=== PATIENT | female | born 1945 | race Caucasian/White ===

== ENCOUNTER 2023-09-26 12:47 | Emergency (ER) | payer MEDICARE, OTHER, SELFPAY ==
[2023-09-26 12:48] VITALS: BP 114/71
--- NOTE | 2023-09-26 13:42 | ED.GENMED ---
History of Present Illness
General
Chief Complaint: Musculo-Skeletal Complaint
Time Seen by Provider: 09/26/23 12:56
Travel History
Have you had any contact with someone who has COVID-19?: No
Do you have any symptoms of coronavirus? Fever > 100 degrees, chills, cough, shortness of breath, sore throat, loss of taste or smell, muscle aches, or headache?: No
History of Present Illness
History of Present Illness:
78-year-old female presents to the emergency department for evaluation of right knee pain that began yesterday and worsened upon awakening today. Feels as though she cannot bear any weight. Denies any falls or trauma. Took ibuprofen with modest
improvement
Past History
Past History
ED Past Medical History: CAD, Cancer (Left breast CA), Hypercholesterolemia, NIDDM (Boarder line II controlled by Diet) and Other (Lyme disease, )
ED Past Surgical History: Gynecological (Left breast lumpectomy), Tonsilectomy and Other (Cataract surgery , Left ear surgery)
Social History
Tobacco: Former smoker
Alcohol: None
Drug: None
Personal:
Living: alone
Employment: Employed
Family History
Family History: Hypertension
Review of Systems
Review of Systems
Allergies reviewed?: Yes
All Other Systems: ROS reviewed and negative except as documented in HPI and ROS
Phy Exam
Physical Exam
Physical Exam:
GEN: Well appearing, NAD, WDWN
HEENT: Oral mucosa moist, no scleral icterus
Cardiac: Regular rate
Lung: No respiratory distress, no tachypnea
MSK: No gross deformity or injuries. Right knee range of motion normal without crepitus. There is tenderness along the medial joint line. No joint laxity. No lower extremity edema, dorsalis pedis pulses 2+
Skin: Good color, no pallor or jaundice, no rashes
Neuro: AO x3, moves all extremities freely
Psych: Calm, cooperative
Course
Orders/Labs/Results
Orders:
Orders
09/26/23 13:13
CR Knee- Right 4 Or More View* Urgent
Comment:
Reason For Exam: non traumatic knee pain
Vital Signs
Initial and Last Documented VS:
Initial Vital Signs
Temp Pulse Resp BP Pulse Ox
98.7 F 61 16 114/71 97
09/26/23 12:48 09/26/23 12:48 09/26/23 12:48 09/26/23 12:48 09/26/23 12:48
Last Documented Vital Signs
Temp Pulse Resp BP Pulse Ox
98.7 F 61 16 114/71 97
09/26/23 12:48 09/26/23 12:48 09/26/23 12:48 09/26/23 12:48 09/26/23 12:48
MDM/Problems Addressed
MDM/Problems Addressed:
X-ray of the right knee independently interpreted by me as negative for acute osseous abnormality. No injuries to suggest an internal derangement or meniscal tear. X-rays are unremarkable. Will discharge on NSAIDs, discussed supportive measures
and INES, orthopedic follow-up advised
*Critical Care Note
Total Time (30-74mins, 75-104mins- exclusive of procedures): Not Applicable
ED Attending Note
-
Portions of this chart may have been created with voice recognition software.� Occasional wrong word or��sound alike� substitutions may have occurred due to the inherent limitations of voice recognition software.
Discharge Plan
Departure
Patient Disposition: Home (Routine Discharge)
Date of Disposition: 09/26/23
Time of Disposition: 14:01
Patient with high blood pressure during this ER visit?: No
Discharge Problem:
Right knee sprain
Instructions: Knee Pain (DC)
Prescriptions:
New
diclofenac sodium 75 mg tablet,delayed release (DR/EC)
75 mg PO BID PRN (Reason: Pain) Qty: 20 0RF
No Action
ascorbic acid (vitamin C) [Vitamin C] 1,000 MG tablet
1 tab PO DAILY
vitamin B complex [Varisan] 1 TAB tablet
1 tab PO DAILY
cholecalciferol (vitamin D3) [Vitamin D3] 1,000 UNIT capsule
1 cap PO DAILY
docosahexaenoic acid-epa 1 CAP capsule
3 cap PO DAILY
multivitamin 1 EACH tablet
1 ea PO DAILY
famotidine 40 MG tablet
40 mg PO DAILY
aspirin [Lo-Dose Aspirin] 81 MG tablet,delayed release (DR/EC)
81 mg PO DAILY
omeprazole 20 MG capsule,delayed release(DR/EC)
20 mg PO DAILY
denosumab [Prolia] 60 MG/ML syringe
60 mg SC [id number]
Referrals:
Lara Hendrix DO [Active] - Follow up in 1 week
Roly Em MD [Family Provider] -
Interventions
Interventions:
*General Assessment Last Done: 09/26/23 12:48
*ED COVID-19 Vaccine History Last Done: 09/26/23 12:48
*Nursing Disposition Last Done: 09/26/23 14:10
ED-Musculoskeletal Assessment Last Done: 09/26/23 13:08
Discharge Date and Time
Discharge Date/Time: 09/26/23 14:10
== END 2023-09-26 14:10 | disposition home or self-care (01) ==
LOC: EMR 12:47
PROVIDERS: EMERGENCY PHYSICIAN Emergency Medicine; FAMILY PHYSICIAN Family Medicine
DX: S83.91XA Sprain of unspecified site of right knee, initial encounter (principal); X58.XXXA Exposure to other specified factors, initial encounter; I25.10 Atherosclerotic heart disease of native coronary artery without angina pectoris; E78.00 Pure hypercholesterolemia, unspecified; E11.9 Type 2 diabetes mellitus without complications; A69.20 Lyme disease, unspecified; Z82.49 Family history of ischemic heart disease and other diseases of the circulatory system; Z85.3 Personal history of malignant neoplasm of breast; Z87.891 Personal history of nicotine dependence
CPT/HCPCS: 99283; 73564

== ENCOUNTER → 2024-02-10 06:57 | Outpatient (REF) | payer MEDICARE, OTHER, SELFPAY | LOC: HWRAD 06:57 | PROVIDERS: ATTENDING PHYSICIAN Internal Medicine Rheumatology; FAMILY PHYSICIAN Family Medicine | DX: M81.0 Age-related osteoporosis without current pathological fracture (principal) | CPT/HCPCS: 77080 ==

== ENCOUNTER → 2024-02-16 13:29 | Outpatient (REF) | payer MEDICARE, OTHER, SELFPAY | LOC: PAVMRI 13:29 | PROVIDERS: ATTENDING PHYSICIAN Internal Medicine Rheumatology; FAMILY PHYSICIAN Family Medicine | DX: M17.11 Unilateral primary osteoarthritis, right knee (principal); M25.561 Pain in right knee | CPT/HCPCS: 73721 ==

== ENCOUNTER 2024-06-25 09:09 | Emergency (ER) | payer MEDICARE, OTHER, SELFPAY ==
[2024-06-25 09:42] VITALS: BP 147/77
--- NOTE | 2024-06-25 10:30 | ED.GENMED ---
History of Present Illness
General
Chief Complaint: Fall
Source: patient
Exam Limitations: none
Time Seen by Provider: 06/25/24 10:18
Nursing documentation reviewed up to this point in time: agreed with
History of Present Illness
History of Present Illness:
79-year-old female with a past medical history of coronary artery disease on aspirin, breast cancer, presents to the emergency department today with concerns of back pain and hip pain following a fall. Patient reports that 6 days ago, she was
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 Patient states that she got up on her own okay and completed the concert without any problems. Patient states that as the days progressed, she
started develop pain in her mid back as well as left hip pain, left knee pain, and right knee pain that got so severe last night that she can barely walk without a limp severe pain. Patient states she has been taking cyclobenzaprine with minimal
relief. Patient states that she did not lose consciousness or hit her head at the time, patient denies any neck pain. Patient states that she has known osteoarthritis of her right knee and is supposed to get a knee replacement in right knee. She
denies shortness of breath, chest pain, dizziness, lightheadedness.
Past History
Past History
ED Past Medical History: CAD, Cancer (Left breast CA), Hypercholesterolemia, NIDDM (Boarder line II controlled by Diet) and Other (Lyme disease, )
ED Past Surgical History: Gynecological (Left breast lumpectomy), Tonsilectomy and Other (Cataract surgery , Left ear surgery)
Social History
Tobacco: Former smoker
Alcohol: None
Drug: None
Personal:
Living: alone
Employment: Employed
Family History
Family History: Hypertension
Review of Systems
Review of Systems
All Other Systems: ROS reviewed and negative except as documented in HPI and ROS
Phy Exam
Physical Exam
Physical Exam:
General: Patient is well appearing and in no acute distress; non-toxic
Skin: Warm and dry, no rashes or lesions
Head: Normocephalic, atraumatic
Eyes: Sclera non-icteric. EOMs intact. PERRLA.
Cardiac: Regular rate
Peripheral Vascular: 2+ dp and pt pulses bilaterally
Pulm: Normal respiratory effort
Musculoskeletal: R HIP: No pain with passive ROM of right hip. R KNEE: Right sided suprapatellar swelling noted, pain with passive knee extension. L HIP: Pain with left hip flexion, no pain with internal/external rotation. Tenderness to palpation
over left mid femur.
No pain with varus/valgus ankle stress bilaterally. No palpable bony deformities.
Neuro: CN II-XII intact, no focal neurologic deficits.
Psychiatric: Appropriate mood and affect.
Course
Orders/Labs/Results
Orders:
Orders
06/25/24 10:53
CR Hip - LT w/wo Pel 2-3 Vw* Urgent
Comment:
Reason For Exam: left hip pain following fall
Include a pelvis x-ray?: Yes
CR Knee- Right 4 Or More View* Urgent
Comment:
Reason For Exam: right knee pain and swelling following fall
CR Thoracic Spine 3 Views Urgent
Comment:
Reason For Exam: midline tenderness following fall
06/25/24 10:54
Ibuprofen [Motrin] 600 mg PO NOW STA
CR Knee - Left 4 Or More View* Urgent
Comment:
Reason For Exam: knee pain
Vital Signs
Initial and Last Documented VS:
Initial Vital Signs
Temp Pulse Resp BP Pulse Ox
99.1 F 66 18 147/77 96
06/25/24 09:42 06/25/24 09:42 06/25/24 09:42 06/25/24 09:42 06/25/24 09:42
Last Documented Vital Signs
Temp Pulse Resp BP Pulse Ox
99.1 F 66 18 147/77 96
06/25/24 09:42 06/25/24 09:42 06/25/24 09:42 06/25/24 09:42 06/25/24 09:42
MDM/Problems Addressed
Differential Diagnosis Includes:
Differentials include femoral neck fracture, musculoskeletal strain/strain, osteoarthritis, vertebral fracture
MDM/Problems Addressed:
79-year-old female with past medical history of coronary artery disease on aspirin, lung disease, breast cancer, presents emergency department today with left hip pain and back pain following a fall. This fall occurred 6 days ago. In contrast to
nursing triage note, patient states that she did NOT fall last night. Patient was able to ambulate without difficulty or pain the past few days until the past few days when she started to have more severe pain and difficulty with ambulation. On
exam, she is well-appearing, she has no areas of ecchymosis, she does have pain with hip flexion, does have tenderness palpation of the left femur but no obvious bony deformities, also has right knee swelling and pain with passive extension. Will
treat patient pain with ibuprofen and send for x-rays.
On reassessment, patient's pain is improved. Her x-rays are negative for any acute fracture or dislocation. I discussed these findings with patient. I did recommend follow-up with patient's orthopedist. Patient states that the most uncomfortable
symptom for her currently is her left knee pain. I did discuss the use of brace to help support the knee, did offer physical therapy, patient declining at this time. Patient states that she feels safe to go home, she states that she lives alone
one story building and does not have to climb stairs. Patient stable for discharge
Chronic conditions affecting care:
n/a
Acute Exacerbation and/or Progression of Chronic Illness:
n/a
*Radiology
Radiology exam reviewed: radiology read reviewed
*Pulse Oximetry
Patient hypoxic: no
*Critical Care Note
Total Time (30-74mins, 75-104mins- exclusive of procedures): Not Applicable
Data Reviewed
Review of Other/Old Records Reveals: Records (Reviewed ER physician documentation from 09/24/2023 patient seen for right knee strain, had x-ray done which was negative, advised to use ice and orthopedic follow-up) and Discharge Summary (No hospital
discharge summary to review)
Source: patient and records
Patient Management
Escalation/DeEscalation of care consider admission/obs:
case reviewed with my attending patient stable for discharge
ED Attending Note
-
Portions of this chart may have been created with voice recognition software.� Occasional wrong word or��sound alike� substitutions may have occurred due to the inherent limitations of voice recognition software.
Discharge Plan
Departure
Patient Disposition: Home (Routine Discharge)
Date of Disposition: 06/25/24
Time of Disposition: 13:46
Patient with high blood pressure during this ER visit?: Yes
Condition: Good
Discharge Problem:
Fall, Acute knee pain
Instructions: Preventing falls in adults, Knee pain, Back Pain, BLOOD PRESSURE
Prescriptions:
No Action
ascorbic acid (vitamin C) [Vitamin C] 1,000 MG tablet
1 tab PO DAILY
vitamin B complex [Varisan] 1 TAB tablet
1 tab PO DAILY
cholecalciferol (vitamin D3) [Vitamin D3] 1,000 UNIT capsule
1 cap PO DAILY
docosahexaenoic acid-epa 1 CAP capsule
3 cap PO DAILY
multivitamin 1 EACH tablet
1 ea PO DAILY
famotidine 40 MG tablet
40 mg PO DAILY
aspirin [Lo-Dose Aspirin] 81 MG tablet,delayed release (DR/EC)
81 mg PO DAILY
omeprazole 20 MG capsule,delayed release(DR/EC)
20 mg PO DAILY
denosumab [Prolia] 60 MG/ML syringe
60 mg SC [id number]
diclofenac sodium 75 mg tablet,delayed release (DR/EC)
75 mg PO BID PRN (Reason: Pain) Qty: 20 0RF
Referrals:
Lara Hendrix I., DO [Active] - Call in 1-3 days for appt
Roly Em MD [Family Provider] -
Activity Restrictions/Additional Instructions:
Please follow-up with your primary care provider. Please follow-up with your orthopedist.
Return to the emergency department should you develop the inability to ambulate, and acute worsening or pain, loss of sensation in your extremities, pallor, chest pain, shortness of breath, or any other signs or symptoms concerning to you.
Interventions
Interventions:
*Risk Screen - Suicide Last Done: 06/25/24 09:42
*General Assessment Last Done: 06/25/24 09:42
*Neglect/Abuse Screening Last Done: 06/25/24 09:42
*Nursing Disposition Last Done: 06/25/24 13:52
Discharge Date and Time
Discharge Date/Time: 06/25/24 13:52
Print Language: [place] CITIZ[place]
[2024-06-25] MEDS: MOTRIN 600 MG PO (11:12)
[2024-06-25 12:00] VITALS: BP 132/64
== END 2024-06-25 13:52 | disposition home or self-care (01) ==
LOC: EMR 09:09
PROVIDERS: EMERGENCY PHYSICIAN Emergency Medicine; FAMILY PHYSICIAN Family Medicine
DX: M25.561 Pain in right knee (principal); M54.9 Dorsalgia, unspecified; M25.552 Pain in left hip; W19.XXXA Unspecified fall, initial encounter; I25.10 Atherosclerotic heart disease of native coronary artery without angina pectoris; E78.00 Pure hypercholesterolemia, unspecified; E11.9 Type 2 diabetes mellitus without complications; Z85.3 Personal history of malignant neoplasm of breast; Z87.891 Personal history of nicotine dependence
CPT/HCPCS: 99284; 72072; 73502; 73564

== ENCOUNTER 2024-10-11 14:17 | Emergency (ER) | payer MEDICARE, OTHER, SELFPAY ==
[2024-10-11 14:18] VITALS: BP 151/62
--- NOTE | 2024-10-11 15:45 | ED.GENMED ---
History of Present Illness
General
Chief Complaint: DVT/Possible Blood Clot
Source: patient
Time Seen by Provider: 10/11/24 15:18
History of Present Illness
History of Present Illness:
79-year-old female with past medical history of previous breast cancer, status post right total knee replacement on September 19 presenting to the emergency department for evaluation at the request of her orthopedic surgeon for DVT rule out after
patient started noticing increased pain and swelling last night. Patient has had follow-up with her orthopedic surgeon who is happy with the healing. Patient has been doing physical therapy as prescribed, had an appointment today but was in too
much discomfort and was recommended to come to the ER. Patient is denying any chest pain, shortness of breath, cough, pleurisy or any other concerns.
Past History
Past History
ED Past Medical History: CAD, Cancer (Left breast CA), Hypercholesterolemia, NIDDM (Boarder line II controlled by Diet) and Other (Lyme disease, )
ED Past Surgical History: Gynecological (Left breast lumpectomy), Tonsilectomy and Other (Cataract surgery , Left ear surgery)
Social History
Tobacco: Former smoker
Alcohol: None
Drug: None
Personal:
Living: alone
Employment: Employed
Family History
Family History: Hypertension
Review of Systems
Review of Systems
All Other Systems: ROS reviewed and negative except as documented in HPI and ROS
Phy Exam
Physical Exam
Physical Exam:
GENERAL: Alert , in no apparent distress
EYE: conjunctiva clear
Head: Normocephalic atraumatic
NECK: Supple,
ENT: mmm.
LUNGS: no acute respiratory distress
NEUROLOGICAL: Alert and oriented
SKIN: Warm and dry, skin intact.
MUSCULOSKELETAL: Right lower extremity: There is mild soft tissue swelling around the anterior and lateral aspect of the knee which extends distally towards the ankle. Patient does have tenderness diffusely and circumferentially from the knee
distal. Slightly erythematous along the medial aspect of the knee but patient reports this has been constant since the surgery and surgeon was not concerned for infection. Easily palpable pedal and tibial pulse. Cap refill less than 2 seconds.
Sensation grossly intact to light touch.
PSYCH: Normal and appropriate interaction.
Scores
Heart Failure Risk
Heart Failure Risk Score: Not Applicable
Heart Score for Chest Pain Patients
STEMI patient?: Not applicable
Withdrawal Assessment of Alcohol
Withdrawal Assessment Completed?: Not applicable
Course
Orders/Labs/Results
Orders:
Orders
10/11/24 14:23
US Periph Venous LOWER Ext RT Urgent
Comment:
Reason For Exam: swelling, recent surgery
10/11/24 17:19
CT Chest PE Study Urgent
Comment:
Reason For Exam: DVT, SOB, recent surgery
10/11/24 17:30
Basic Metabolic Panel Urgent
Complete Blood Count/With Diff Urgent
PTT Urgent
Prothrombin Time Urgent
10/11/24 19:54
Apixaban [Eliquis] 10 mg PO NOW STA
Abnormal Lab Results
10/11/24
17:30
RBC 3.94 L 10^6/uL
(4.20-5.40)
MCH 32.5 H pg
(27.0-31.0)
Creatinine 0.5 L mg/dL
(0.6-1.0)
10/11/24 17:30
10/11/24 17:30
Vital Signs
Initial and Last Documented VS:
Initial Vital Signs
Temp Pulse Resp BP Pulse Ox
98.2 F 70 16 151/62 99
10/11/24 14:18 10/11/24 14:18 10/11/24 14:18 10/11/24 14:18 10/11/24 14:18
Last Documented Vital Signs
Temp Pulse Resp BP Pulse Ox
98.2 F 78 16 151/62 98
10/11/24 14:18 10/11/24 17:29 10/11/24 17:29 10/11/24 14:18 10/11/24 17:29
MDM/Problems Addressed
Differential Diagnosis Includes:
DVT/PE, peripheral vascular disease, peripheral arterial disease, infectious etiology
MDM/Problems Addressed:
79-year-old female presenting to the ER at the request of her orthopedic surgeon for evaluation of possible DVT to the right lower extremity in the setting of recent knee replacement. Patient does have some soft tissue swelling that is noticeable
on her exam. Intact and equal pulses bilaterally making acute arterial occlusion much less likely. Will check ultrasound to rule out DVT. Disposition pending.
Chronic conditions affecting care: Other (Recent orthopedic surgery)
*Radiology
Radiology exam reviewed: radiology read reviewed
*Pulse Oximetry
Patient hypoxic: no
*Critical Care Note
Total Time (30-74mins, 75-104mins- exclusive of procedures): Not Applicable
Comment
Comment:
Patient has an acute DVT of the right peroneal vein. While discussing the results with the patient she now is noting that she has been experiencing some mild shortness of breath over the last couple of days. Given her known known DVT combined with
her reported shortness of breath labs and CT imaging were ordered to rule out pulmonary embolism.
Patient Management
Escalation/DeEscalation of care consider admission/obs:
Patient CT scan of the chest is negative for acute pulmonary embolism. She remains hemodynamically stable and okay for discharge home. Patient was given her first dose of Eliquis here and prescription sent to pharmacy. She was with a coupon for
the first 30 days of her anticoagulation. Advised patient to contact her orthopedic surgeon in the morning as well as her primary care provider as she will likely need extended anticoagulation past the 1 month and close monitoring of the DVT. She
was given return precautions. Patient was advised on potential side effects of Eliquis as well as medications to avoid. Patient will stop use of her aspirin for the time being. Stable for discharge home
ED Attending Note
-
Portions of this chart may have been created with voice recognition software.� Occasional wrong word or��sound alike� substitutions may have occurred due to the inherent limitations of voice recognition software.
Discharge Plan
Departure
Patient Disposition: Home (Routine Discharge)
Date of Disposition: 10/11/24
Time of Disposition: 19:55
Patient with high blood pressure during this ER visit?: Yes
Discharge Problem:
Acute deep vein thrombosis (DVT) of right peroneal vein
Instructions: Deep Vein Thrombosis (Blood Clots in the Legs) (DC)
Prescriptions:
New
Eliquis 5 mg tablet
5 mg PO BID Qty: 68 0RF
Rx Instructions:
Take 2 tabs PO BID x 6.5 days. Take 1 tab PO BID remaining days
No Action
ascorbic acid (vitamin C) [Vitamin C] 1,000 MG tablet
1 tab PO DAILY
vitamin B complex [Varisan] 1 TAB tablet
1 tab PO DAILY
cholecalciferol (vitamin D3) [Vitamin D3] 1,000 UNIT capsule
1 cap PO DAILY
docosahexaenoic acid-epa 1 CAP capsule
3 cap PO DAILY
multivitamin 1 EACH tablet
1 ea PO DAILY
famotidine 40 MG tablet
40 mg PO DAILY
aspirin [Lo-Dose Aspirin] 81 MG tablet,delayed release (DR/EC)
81 mg PO DAILY
omeprazole 20 MG capsule,delayed release(DR/EC)
20 mg PO DAILY
denosumab [Prolia] 60 MG/ML syringe
60 mg SC [id number]
diclofenac sodium 75 mg tablet,delayed release (DR/EC)
75 mg PO BID PRN (Reason: Pain) Qty: 20 0RF
Referrals:
Roly Em MD [Family Provider] -
Interventions
Interventions:
*Risk Screen - Suicide Last Done: 10/11/24 14:18
*General Assessment Last Done: 10/11/24 14:18
*ED COVID-19 Vaccine History Last Done: 10/11/24 14:18
*Nursing Disposition Last Done: 10/11/24 20:29
ED- Cardiac Assessment Last Done: 10/11/24 15:42
ED- Pulmonary Assessment Last Done: 10/11/24 15:42
Discharge Date and Time
Discharge Date/Time: 10/11/24 20:29
Print Language: [place]
[2024-10-11 17:40] LABS: % Basophils 0.6 % (0-2); % Eosinophils 1.5 % (0-6); % Immature Granulocytes 0.2 % (0-0.5); % Lymphocytes 28.8 % (20.5-51.1); % Monocytes 7.7 % (1.7-9.3); % Neutrophils 61.2 % (42.2-75.2); Absolute Eosinophils 0.1 10^3/uL (0-0.7); Absolute Lymphocytes 1.9 10^3/uL (1.2-3.4); Absolute Monocytes 0.5 10^3/uL (0.1-0.6); Absolute Neutrophils 4.1 10^3/uL (1.4-6.5); Hematocrit 37.3 % (37.0-47.0); Hemoglobin 12.8 g/dL (12.0-16.0); Mean Corp Hgb Conc. 34.3 g/dL (33.0-37.0); Mean Corpuscular Hgb 32.5 pg (27.0-31.0); Mean Corpuscular Volume 94.7 fL (81.0-99.0); Mean Platelet Volume 9.3 fL (7.4-10.4); Nucleated Red Blood Cells % 0 %; Platelet Count 347 10^3/uL (130-400); Red Blood Cell Count 3.94 10^6/uL (4.20-5.40); Red Cell Dist. Width 13.2 % (11.5-14.5); White Blood Cell Count 6.6 10^3/uL (4.8-10.8)
[2024-10-11 17:47] LABS: INR 1.02; PT 13.9 Sec (11.4-14.6)
[2024-10-11 17:48] LABS: APTT 27.7 Sec (23.4-35.0)
[2024-10-11 17:51] LABS: Blood Urea Nitrogen 10 mg/dl (7-17); Calcium 9.7 mg/dl (8.4-10.2); Carbon Dioxide 22 mmol/L (22-30); Chloride 106 mmol/L (98-107); Estimated Creatinine Clearance 71 ml/min; Glucose 96 mg/dl (70-99); Potassium 4.1 mmol/L (3.5-5.1); Sodium 138 mmol/L (135-145); eGFR > 60.00
[2024-10-11] MEDS: ELIQUIS 10 MG PO (20:04)
== END 2024-10-11 20:29 | disposition home or self-care (01) ==
LOC: EMR 14:17
PROVIDERS: Physician Assistant Medical; EMERGENCY PHYSICIAN Emergency Medicine; FAMILY PHYSICIAN Family Medicine
DX: I82.451 Acute embolism and thrombosis of right peroneal vein (principal); R22.41 Localized swelling, mass and lump, right lower limb; I25.10 Atherosclerotic heart disease of native coronary artery without angina pectoris; E78.00 Pure hypercholesterolemia, unspecified; E11.9 Type 2 diabetes mellitus without complications; Z79.01 Long term (current) use of anticoagulants; Z82.49 Family history of ischemic heart disease and other diseases of the circulatory system; Z85.3 Personal history of malignant neoplasm of breast; Z87.891 Personal history of nicotine dependence; Z96.651 Presence of right artificial knee joint
CPT/HCPCS: 99284; 71275; 80048; 85025; 85610; 85730; 93971; Q9967

== ENCOUNTER 2024-10-16 12:09 | Emergency (ER) | payer MEDICARE, OTHER, SELFPAY ==
[2024-10-16 12:12] VITALS: BP 126/64
[2024-10-16 13:12] LABS: % Basophils 0.6 % (0-2); % Eosinophils 1.6 % (0-6); % Immature Granulocytes 0.2 % (0-0.5); % Lymphocytes 24.5 % (20.5-51.1); % Monocytes 8.6 % (1.7-9.3); % Neutrophils 64.5 % (42.2-75.2); Absolute Eosinophils 0.1 10^3/uL (0-0.7); Absolute Lymphocytes 1.5 10^3/uL (1.2-3.4); Absolute Monocytes 0.5 10^3/uL (0.1-0.6); Hematocrit 36.4 % (37.0-47.0); Hemoglobin 12.1 g/dL (12.0-16.0); Mean Corp Hgb Conc. 33.2 g/dL (33.0-37.0); Mean Corpuscular Hgb 32.4 pg (27.0-31.0); Mean Corpuscular Volume 97.3 fL (81.0-99.0); Mean Platelet Volume 9.5 fL (7.4-10.4); Nucleated Red Blood Cells % 0 %; Platelet Count 236 10^3/uL (130-400); Red Blood Cell Count 3.74 10^6/uL (4.20-5.40); Red Cell Dist. Width 13.2 % (11.5-14.5); White Blood Cell Count 6.2 10^3/uL (4.8-10.8)
[2024-10-16 13:21] LABS: INR 1.23; PT 15.8 Sec (11.4-14.6)
[2024-10-16 13:22] LABS: APTT 33.9 Sec (23.4-35.0)
[2024-10-16 13:30] LABS: ALT (SGPT) 13 U/L (0-35); AST (SGOT) 16 U/L (14-36); Alkaline Phosphatase 44 U/L (38-126); Blood Urea Nitrogen 16 mg/dl (7-17); Calcium 10.5 mg/dl (8.4-10.2); Carbon Dioxide 24 mmol/L (22-30); Chloride 106 mmol/L (98-107); Glucose 116 mg/dl (70-99); Sodium 139 mmol/L (135-145); Total Bilirubin 0.4 mg/dl (0.2-1.3); Total Protein 6.2 g/dl (6.3-8.2); eGFR > 60.00
--- NOTE | 2024-10-16 13:35 | ED.GENMED ---
History of Present Illness
General
Chief Complaint: DVT/Possible Blood Clot
Source: patient
Exam Limitations: none
Time Seen by Provider: 10/16/24 13:10
Nursing documentation reviewed up to this point in time: agreed with
History of Present Illness
History of Present Illness:
79-year-old female with history of CAD, DVT on Eliquis which was started 4 days ago for RLE DVT post R knee replacement on 09/19/24. Has not had today's dose of Eliquis as she thought the rash on her ankle was from allergic reaction
Pt here for shortness of breath, headache, rash right ankle. She called her orthopedic doctors office and they sent her here for evaluation. She denies shortness of breath at this time she denies chest pain.
Past History
Past History
ED Past Medical History: CAD, Cancer (Left breast CA), Hypercholesterolemia, NIDDM (Boarder line II controlled by Diet) and Other (Lyme disease, )
ED Past Surgical History: Gynecological (Left breast lumpectomy), Tonsilectomy and Other (Cataract surgery , Left ear surgery)
Social History
Tobacco: Former smoker
Alcohol: None
Drug: None
Personal:
Living: alone
Employment: Employed
Family History
Family History: Hypertension
Review of Systems
Review of Systems
Allergies reviewed?: Yes
All Other Systems: ROS reviewed and negative except as documented in HPI and ROS
Constitutional: Denies fever or chills
Respiratory: Denies cough or trouble breathing (States she felt short of breath earlier today, she denies feeling that way now)
Cardiac: Denies chest pain
Phy Exam
Physical Exam
Physical Exam:
GENERAL: No acute distress. A&Ox3.
CONSTITUTIONAL: Afebrile.
EYES: clear, conjunctivae normal
ENMT: moist mucus membranes, Pharynx nl
RESPIRATORY: Regular respirations, nonlabored, lungs clear.
CARDIOVASCULAR: Regular rate and rhythm, no murmurs, no rubs.
GI: Soft, nontender, normal BS
MUSCULOSKELETAL: Moves with ease. Well perfused. Right leg +1 swollen and mildly erythematous, well-healed vertical anterior knee scar. Pedal pulses normal, foot is warm, brisk capillary refill
SKIN: Warm, dry, pink. Mild rash outer aspect right ankle mildly abraded from scratching no swelling or redness,
PSYCH: Normal mood and affect. Well kept, interactive and appropriate
NEUROLOGIC: Awake, alert and oriented. No focal neurological deficits
Course
Orders/Labs/Results
Orders:
Orders
10/16/24 12:16
ECG [Electrocardiogram (*1)] Urgent
Reason for Study: Shortness of Breath
Other Reason for Exam: H/O DVT
10/16/24 12:17
EKG- Treatment ONCE
10/16/24 12:59
Complete Blood Count/With Diff Urgent
Comprehensive Metabolic Panel Urgent
PT/INR [Prothrombin Time] Urgent
PTT Urgent
Troponin I Urgent
10/16/24 14:17
Apixaban [Eliquis] 10 mg PO NOW STA
Abnormal Lab Results
10/16/24
12:59
RBC 3.74 L 10^6/uL
(4.20-5.40)
Hct 36.4 L %
(37.0-47.0)
MCH 32.4 H pg
(27.0-31.0)
PT 15.8 H Sec
(11.4-14.6)
Creatinine 0.5 L mg/dL
(0.6-1.0)
Glucose 116 H mg/dl
(70-99)
Calcium 10.5 H mg/dl
(8.4-10.2)
Total Protein 6.2 L g/dl
(6.3-8.2)
10/16/24 12:59
10/16/24 12:59
Vital Signs
Initial and Last Documented VS:
Initial Vital Signs
Temp Pulse Resp BP Pulse Ox
98.9 F 79 16 126/64 97
10/16/24 12:12 10/16/24 12:12 10/16/24 12:12 10/16/24 12:12 10/16/24 12:12
Last Documented Vital Signs
Temp Pulse Resp BP Pulse Ox
98.9 F 62 18 121/64 97
10/16/24 12:12 10/16/24 14:27 10/16/24 14:27 10/16/24 14:27 10/16/24 14:27
MDM/Problems Addressed
Differential Diagnosis Includes:
PE, side effect from medication, cellulitis,
lack of knowledge regarding care plan
MDM/Problems Addressed:
79-year-old female with history of CAD, DVT on Eliquis which was started 4 days ago for RLE DVT post R knee replacement on 09/19/24. Has not had today's dose of Eliquis as she thought the rash on her ankle was from allergic reaction
Pt here for shortness of breath, headache, rash right ankle. She called her orthopedic doctors office and they sent her here for evaluation. She denies shortness of breath at this time. Denies CP
CBC unremarkable
CMP unremarkable
Troponin within normal limits
No tachycardia, pulse ox is 97% room air, no tachypnea, no chest pain, had negative chest CT 4 days ago, on Eliquis no concern for PE
Afebrile, normal WBC, pt and say look of the RLE has not changed, no worsening swelling or redness. No warmth. No indication of cellulitis
Pt is very confused about her plan of care. She could only get 7 day supply of Eliquis.
I gave her the coupon for the free 30 days and called [facility] to confirm they can fill it for her.
Pt unable to get appt with Policyholder Information Clerk for 2-3 months after calling around. She [place] get [place] and would really like to cancel that.
She has not been informed that she needs a f/u US 2-3 weeks after initial diagnosis.
I spoke with Dr. Campbell's PA Brooklynn who states he typically likes his patients to see the Policyholder Information Clerk in 1-2 weeks because it is they, not he that orders the follow up US.
She gave pt the option of calling the office Wed. (2 days) when he is in office if she prefers to wait 2-3 months for Hematology in a safer area.
*Critical Care Note
Total Time (30-74mins, 75-104mins- exclusive of procedures): Not Applicable
ED Attending Note
-
Portions of this chart may have been created with voice recognition software.� Occasional wrong word or��sound alike� substitutions may have occurred due to the inherent limitations of voice recognition software.
Discharge Plan
Departure
Patient Disposition: Home (Routine Discharge)
Date of Disposition: 10/16/24
Time of Disposition: 15:30
Patient with high blood pressure during this ER visit?: No
Condition: Good
Discharge Problem:
Mild shortness of breath
Instructions: Deep Vein Thrombosis (Blood Clots in the Legs) (DC), Apixaban
Prescriptions:
New
Eliquis 5 mg tablet
5 mg PO BID Qty: 60 0RF
No Action
ascorbic acid (vitamin C) [Vitamin C] 1,000 MG tablet
1 tab PO DAILY
vitamin B complex [Varisan] 1 TAB tablet
1 tab PO DAILY
cholecalciferol (vitamin D3) [Vitamin D3] 1,000 UNIT capsule
1 cap PO DAILY
docosahexaenoic acid-epa 1 CAP capsule
3 cap PO DAILY
multivitamin 1 EACH tablet
1 ea PO DAILY
famotidine 40 MG tablet
40 mg PO DAILY
aspirin [Lo-Dose Aspirin] 81 MG tablet,delayed release (DR/EC)
81 mg PO DAILY
omeprazole 20 MG capsule,delayed release(DR/EC)
20 mg PO DAILY
denosumab [Prolia] 60 MG/ML syringe
60 mg SC [id number]
diclofenac sodium 75 mg tablet,delayed release (DR/EC)
75 mg PO BID PRN (Reason: Pain) Qty: 20 0RF
Eliquis 5 mg tablet
5 mg PO BID Qty: 68 0RF
Rx Instructions:
Take 2 tabs PO BID x 6.5 days. Take 1 tab PO BID remaining days
Referrals:
Roly Em MD [Family Provider] -
Activity Restrictions/Additional Instructions:
As we discussed, I sent a prescription to your pharmacy for Eliquis 5 mg twice a day for 30 days.
Go home and get on the computer and use the information on the coupon I gave you to confirm the coupon
You may call me at [phone] and ask for Cass if you have any problems I will be here until 6:00 tonight
I will also be here from 8 AM to 6 PM tomorrow
There is nothing worrisome in your workup here today. The rash on your ankle has nothing to do with the medication. I am not concerned about a pulmonary embolism at this time.
I updated the BAKARI Overton at Dr. Osei office of your visit here today
If you really want to cancel your appointment with the riveting machine operator tape control and reschedule for a riveting machine operator tape control in a better area, the BAKARI Overton said you can do that but Dr. Campbell really would like you to have a follow-up within 2 weeks because she said
that it is the riveting machine operator tape control that orders the follow-up ultrasound and you should have a repeat US within the next couple of weeks
She said Dr. Campbell is will be in the office Wednesday if you would like to call and get his input.
If you develop fever, chills, increasing redness, swelling, pain, seek medical care immediately as they may be signs of infection
Interventions
Interventions:
*Risk Screen - Suicide Last Done: 10/16/24 13:41
*General Assessment Last Done: 10/16/24 13:41
*Neglect/Abuse Screening Last Done: 10/16/24 13:41
*Nursing Disposition Last Done: 10/16/24 16:06
ED- Cardiac Assessment Last Done: 10/16/24 13:41
ED- Pulmonary Assessment Last Done: 10/16/24 13:41
ED-Peripheral Vascular Assessment Last Done: 10/16/24 13:41
ED-Skin Assessment Last Done: 10/16/24 13:41
Discharge Date and Time
Discharge Date/Time: 10/16/24 16:07
Print Language: DIVEHI
[2024-10-16 13:56] LABS: Troponin I < 0.012 ng/ml
[2024-10-16] MEDS: ELIQUIS 10 MG PO (14:21)
[2024-10-16 14:27] VITALS: BP 121/64
== END 2024-10-16 16:07 | disposition home or self-care (01) ==
LOC: EMR 12:09
PROVIDERS: Emergency Medicine; EMERGENCY PHYSICIAN Student in an Organized Health Care Education/Training Program; FAMILY PHYSICIAN Family Medicine
DX: R06.02 Shortness of breath (principal); I25.10 Atherosclerotic heart disease of native coronary artery without angina pectoris; Z86.718 Personal history of other venous thrombosis and embolism; Z87.891 Personal history of nicotine dependence
CPT/HCPCS: 99284; 80053; 84484; 85025; 85610; 85730; 93005

== ENCOUNTER → 2024-11-01 09:56 | Outpatient (REF) | payer MEDICARE, OTHER, SELFPAY | LOC: PAVMRI 09:56 | PROVIDERS: ATTENDING PHYSICIAN Physician Assistant Surgical; FAMILY PHYSICIAN Family Medicine | DX: M54.16 Radiculopathy, lumbar region (principal); M54.50 Low back pain, unspecified; M51.369 Other intervertebral disc degeneration, lumbar region without mention of lumbar back pain or lower extremity pain; M43.16 Spondylolisthesis, lumbar region | CPT/HCPCS: 72148 ==

== ENCOUNTER 2024-11-01 14:27 | Emergency (ER) | payer MEDICARE, OTHER, SELFPAY ==
[2024-11-01] VITALS (8 sets, daily range): BP systolic 140–177; BP diastolic 54–69
[2024-11-01 15:43] LABS: % Basophils 0.7 % (0-2); % Eosinophils 1.5 % (0-6); % Immature Granulocytes 0.3 % (0-0.5); % Lymphocytes 22.2 % (20.5-51.1); % Monocytes 7.3 % (1.7-9.3); Absolute Basophils 0.1 10^3/uL (0-0.2); Absolute Eosinophils 0.1 10^3/uL (0-0.7); Absolute Lymphocytes 1.7 10^3/uL (1.2-3.4); Absolute Monocytes 0.6 10^3/uL (0.1-0.6); Absolute Neutrophils 5.1 10^3/uL (1.4-6.5); Hematocrit 37.8 % (37.0-47.0); Hemoglobin 12.6 g/dL (12.0-16.0); Mean Corp Hgb Conc. 33.3 g/dL (33.0-37.0); Mean Corpuscular Hgb 31.7 pg (27.0-31.0); Mean Corpuscular Volume 95.2 fL (81.0-99.0); Mean Platelet Volume 9.4 fL (7.4-10.4); Nucleated Red Blood Cells % 0 %; Platelet Count 284 10^3/uL (130-400); Red Blood Cell Count 3.97 10^6/uL (4.20-5.40); Red Cell Dist. Width 12.9 % (11.5-14.5); White Blood Cell Count 7.5 10^3/uL (4.8-10.8)
[2024-11-01 15:44] LABS: ALT (SGPT) 16 U/L (0-35); AST (SGOT) 16 U/L (14-36); Albumin 4.4 g/dl (3.5-5.0); Alkaline Phosphatase 45 U/L (38-126); Blood Urea Nitrogen 18 mg/dl (7-17); Calcium 10.2 mg/dl (8.4-10.2); Carbon Dioxide 24 mmol/L (22-30); Chloride 106 mmol/L (98-107); Glucose 150 mg/dl (70-99); Potassium 3.6 mmol/L (3.5-5.1); Sodium 140 mmol/L (135-145); Total Bilirubin 0.4 mg/dl (0.2-1.3); Total Protein 6.7 g/dl (6.3-8.2); eGFR > 60.00
--- NOTE | 2024-11-01 16:14 | ED.GENMED ---
History of Present Illness
<ELEANOR Silva - Last Filed: 11/03/24 13:45>
General
Chief Complaint: Breathing Problem
Source: patient
Exam Limitations: none
Time Seen by Provider: 11/01/24 16:09
Nursing documentation reviewed up to this point in time: agreed with
History of Present Illness
History of Present Illness:
79 yr old female female presents to the ER for increasing shortness of breath.. Patient reports she is status post right knee placement in August ([place]ia)
and since then has not felt right. She is taking Eliquis. She reports for the past several days she has got short of breath with exertion. On Wednesday during therapy she felt a little short of breath and today while walking from her car into
physical therapy she was very short of breath. Her physical therapist told her that her heart rate was elevated not skipping beats as documented in triage. With worsening shortness of breath and elevated heart rate patient was sent to the ER for
evaluation. She has been taking Eliquis she did skip 1 dose this week. She denies any obvious lower extremity swelling. she has mild complaints of palpitations.
She does report her knee incision is healing well. She has no prior history of CHF. She denies any nausea vomiting fever chills. She denies any cough.
She denies any dark or black stools.
Past History
<ELEANOR Silva - Last Filed: 11/03/24 13:45>
Past History
ED Past Medical History: CAD, Cancer (Left breast CA), Hypercholesterolemia, NIDDM (Boarder line II controlled by Diet) and Other (Lyme disease, )
ED Past Surgical History: Gynecological (Left breast lumpectomy), Tonsilectomy and Other (Cataract surgery , Left ear surgery)
Social History
Tobacco: Former smoker
Alcohol: None
Drug: None
Personal:
Living: alone
Employment: Employed
Family History
Family History: Hypertension
Review of Systems
<ELEANOR Silva - Last Filed: 11/03/24 13:45>
Review of Systems
All Other Systems: ROS reviewed and negative except as documented in HPI and ROS
Constitutional: Reports fatigue
EENT: Reports no symptoms
Respiratory: Reports no symptoms
Phy Exam
<ELEANOR Silva - Last Filed: 11/03/24 13:45>
General Physical Exam
General Presentation: no apparent distress
General age: appears stated age
General Skin: warm and dry
General Habitus: elderly
General Mental: alert
General Hydration: appears well hydrated
Cardiovascular Exam
Cardiovascular Exam: regular rate/rhythm, no murmur and normal peripheral pulses
Pulmonary Exam
Pulmonary Exam: lungs clear and no respiratory distress
Neurological Exam
Neurological Exam: alert and oriented x3
Musculoskeletal Exam
Musculoskeletal Exam: other (b/l l/e with strong pulses no swelling ; healing incision to right anterior knee )
Skin Exam
Skin Exam: normal color and warm/dry
Psychiatric Exam
Psychiatric Exam: normal mood/affect
Scores
<Jurgen Gee PA-C - Last Filed: 11/01/24 21:43>
Heart Failure Risk
Heart Failure Risk Score: Not Applicable
Course
<ELEANOR Silva - Last Filed: 11/03/24 13:45>
Orders/Labs/Results
Orders:
Orders
11/01/24 14:28
ECG [Electrocardiogram (*1)] Urgent
Reason for Study: Palpitations
EKG- Treatment ONCE
11/01/24 15:16
Complete Blood Count/With Diff Urgent
Comprehensive Metabolic Panel Urgent
NT-proBNP Urgent
Comment: ADD ON
11/01/24 16:20
Add On- LAB Urgent
Tests Added?: pro bnp
11/01/24 16:23
Venous Doppler Lwr Ext Bilat [US Periph Venous LOWER Ext Sarmad] Urgent
Comment:
Reason For Exam: sob recent surgery
11/01/24 17:03
Troponin I Urgent
11/01/24 18:28
CT Chest PE Study Urgent
Comment:
Reason For Exam: SOB s/p knee replacement
Abnormal Lab Results
11/01/24
15:16
RBC 3.97 L 10^6/uL
(4.20-5.40)
MCH 31.7 H pg
(27.0-31.0)
BUN 18 H mg/dl
(7-17)
Creatinine 0.5 L mg/dL
(0.6-1.0)
Glucose 150 H mg/dl
(70-99)
11/01/24 15:16
11/01/24 15:16
Vital Signs
Initial and Last Documented VS:
Initial Vital Signs
Temp Pulse Resp BP Pulse Ox
98.2 F 77 18 153/69 97
11/01/24 14:33 11/01/24 14:33 11/01/24 14:33 11/01/24 14:33 11/01/24 14:33
Last Documented Vital Signs
Temp Pulse Resp BP Pulse Ox
98.2 F 65 17 159/62 94
11/01/24 14:33 11/01/24 20:15 11/01/24 20:15 11/01/24 20:00 11/01/24 20:15
Beet Topper consulted with Physician
Beet Topper consulted with physician?: Yes
Name of Physician Consulted: DR Alvarez
<Jurgen Gee PA-C - Last Filed: 11/01/24 21:43>
Orders/Labs/Results
Orders:
Orders
11/01/24 14:28
ECG [Electrocardiogram (*1)] Urgent
Reason for Study: Palpitations
EKG- Treatment ONCE
11/01/24 15:16
Complete Blood Count/With Diff Urgent
Comprehensive Metabolic Panel Urgent
NT-proBNP Urgent
Comment: ADD ON
11/01/24 16:20
Add On- LAB Urgent
Tests Added?: pro bnp
11/01/24 16:23
Venous Doppler Lwr Ext Bilat [US Periph Venous LOWER Ext Sarmad] Urgent
Comment:
Reason For Exam: sob recent surgery
11/01/24 17:03
Troponin I Urgent
11/01/24 18:28
CT Chest PE Study Urgent
Comment:
Reason For Exam: SOB s/p knee replacement
Abnormal Lab Results
11/01/24
15:16
RBC 3.97 L 10^6/uL
(4.20-5.40)
MCH 31.7 H pg
(27.0-31.0)
BUN 18 H mg/dl
(7-17)
Creatinine 0.5 L mg/dL
(0.6-1.0)
Glucose 150 H mg/dl
(70-99)
11/01/24 15:16
11/01/24 15:16
Vital Signs
Initial and Last Documented VS:
Initial Vital Signs
Temp Pulse Resp BP Pulse Ox
98.2 F 77 18 153/69 97
11/01/24 14:33 11/01/24 14:33 11/01/24 14:33 11/01/24 14:33 11/01/24 14:33
Last Documented Vital Signs
Temp Pulse Resp BP Pulse Ox
98.2 F 65 17 159/62 94
11/01/24 14:33 11/01/24 20:15 11/01/24 20:15 11/01/24 20:00 11/01/24 20:15
<ELEANOR Silva - Last Filed: 11/03/24 13:45>
MDM/Problems Addressed
MDM/Problems Addressed:
As documented patient is a 79-year-old female status post knee replacement in September 19 presents to the ER for shortness of breath. She noticed shortness of breath 2 days ago and also again today. Sometimes she does feel palpitations. She has no
associated chest pain. She is no history of heart failure. She presents awake alert no acute distress she was a little short of breath here in the ER however nonhypoxic and nontachycardic heart rate in the 60s. Her troponin is negative cardiac
BNP is negative. 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 Patient's surgical site is well-appearing without evidence of infection.
With patient did skip a dose of Eliquis this week with shortness of breath and recent surgery in August will CT to rule out PE. Care of patient this time transferred to [facility].
Chronic conditions affecting care:
recent right knee replacement
<ELEANOR Silva - Last Filed: 11/03/24 13:45>
*Radiology
Radiology exam reviewed: radiology read reviewed
*Pulse Oximetry
Patient hypoxic: no
*EKG
Interpreted by ED Provider?: Yes
Heart Rate: 72
Rate: normal
Rhythm: sinus
Ischemia: no ischemia
<Jurgen Gee PA-C - Last Filed: 11/01/24 21:43>
*Critical Care Note
Total Time (30-74mins, 75-104mins- exclusive of procedures): Not Applicable
<Jurgen Gee PA-C - Last Filed: 11/01/24 21:43>
Update Note
Update Note:
1831: Assumed care of pt from Gladys Green PRODUCE PRODUCTION TEAM MEMBER. Pt with increased SOB during PT today. Awaiting PE study
2023: CT unremarkable. Reviewed reassuring workup with patient. D/C in stable condition, recommend cardiology and PCP f/u
ED Attending Note
<ELEANOR Silva - Last Filed: 11/03/24 13:45>
-
Portions of this chart may have been created with voice recognition software.� Occasional wrong word or��sound alike� substitutions may have occurred due to the inherent limitations of voice recognition software.
Discharge Plan
Departure
Patient Disposition: Home (Routine Discharge)
Date of Disposition: 11/01/24
Time of Disposition: 20:24
Patient with high blood pressure during this ER visit?: No
Discharge Problem:
Exertional dyspnea
Instructions: Shortness of Breath (Dyspnea) (DC)
Prescriptions:
No Action
ascorbic acid (vitamin C) [Vitamin C] 1,000 MG tablet
1 tab PO DAILY
vitamin B complex [Varisan] 1 TAB tablet
1 tab PO DAILY
cholecalciferol (vitamin D3) [Vitamin D3] 1,000 UNIT capsule
1 cap PO DAILY
docosahexaenoic acid-epa 1 CAP capsule
3 cap PO DAILY
multivitamin 1 EACH tablet
1 ea PO DAILY
famotidine 40 MG tablet
40 mg PO DAILY
aspirin [Lo-Dose Aspirin] 81 MG tablet,delayed release (DR/EC)
81 mg PO DAILY
omeprazole 20 MG capsule,delayed release(DR/EC)
20 mg PO DAILY
denosumab [Prolia] 60 MG/ML syringe
60 mg SC [id number]
diclofenac sodium 75 mg tablet,delayed release (DR/EC)
75 mg PO BID PRN (Reason: Pain) Qty: 20 0RF
Eliquis 5 mg tablet
5 mg PO BID Qty: 68 0RF
Rx Instructions:
Take 2 tabs PO BID x 6.5 days. Take 1 tab PO BID remaining days
Eliquis 5 mg tablet
5 mg PO BID Qty: 60 0RF
Referrals:
Roly Em MD [Family Provider] -
Activity Restrictions/Additional Instructions:
Follow up with your field radio technician
Interventions
Interventions:
*Risk Screen - Suicide Last Done: 11/01/24 14:33
*General Assessment Last Done: 11/01/24 19:24
*Neglect/Abuse Screening Last Done: 11/01/24 14:33
*ED- Fall Risk Assessment Last Done: 11/01/24 19:24
*ED COVID-19 Vaccine History Last Done: 11/01/24 14:33
*Nursing Disposition Last Done: 11/01/24 20:58
ED- Cardiac Assessment Last Done: 11/01/24 16:18
ED- Pulmonary Assessment Last Done: 11/01/24 16:18
Discharge Date and Time
Discharge Date/Time: 11/01/24 21:00
Print Language: URUGUAYAN
[2024-11-01 17:51] LABS: Troponin I < 0.012 ng/ml
[2024-11-01 18:03] LABS: NT-proBNP 457 pg/ml
== END 2024-11-01 21:00 | disposition home or self-care (01) ==
LOC: EMR 14:27
PROVIDERS: Emergency Medicine; EMERGENCY PHYSICIAN Emergency Medicine; FAMILY PHYSICIAN Family Medicine
DX: R06.09 Other forms of dyspnea (principal); M79.605 Pain in left leg; M79.604 Pain in right leg; R22.43 Localized swelling, mass and lump, lower limb, bilateral; I25.10 Atherosclerotic heart disease of native coronary artery without angina pectoris; E78.00 Pure hypercholesterolemia, unspecified; E11.9 Type 2 diabetes mellitus without complications; Z82.49 Family history of ischemic heart disease and other diseases of the circulatory system; Z85.3 Personal history of malignant neoplasm of breast; Z87.891 Personal history of nicotine dependence; Z96.651 Presence of right artificial knee joint
CPT/HCPCS: 99284; 71275; 80053; 83880; 84484; 85025; 93005; 93970; Q9967

== ENCOUNTER 2025-01-05 18:47 | Emergency (ER) | payer MEDICARE, OTHER, SELFPAY ==
[2025-01-05 18:50] VITALS: BP 181/142
--- NOTE | 2025-01-05 19:57 | EDRN ---
Pt arrives to Rm 5 via wheelchair from triage with brian bandage in place to R hand. Pt was either scratched or bit by her cat, is on eliquis. Brian bandage removed to assess, found to have pulsatile bleeding from laceration to R hand. Direct pressure
applied. Dr Preston at bedside to assess. Unable to control bleeding. Dr Kee @ bedside. sutures placed, pt still with bleeding. Ki tourniquet placed @ 194.
Acewrap placed and R hand elevated.
--- NOTE | 2025-01-05 19:57 | ED.SKININJ ---
HPI-Injury
General
Chief Complaint: Bite
Time Seen by Provider: 01/05/25 19:11
History of Present Illness-Injury
Initial Injury comments:
79-year-old female with history of DVT on Eliquis presenting to the emergency department for cat bite. Patient reports prior to arrival she pulled her cat's tail because it was doing something was not supposed to. The cat subsequently bit her in
the right hand. Patient is right-hand dominant. She immediately had bleeding at the dorsal part of the hand, snuffbox region. She was unable to control the bleeding. Denies additional acute injuries. Tetanus status unknown.
Past History
Past History
ED Past Medical History: CAD, Cancer (Left breast CA), Hypercholesterolemia, NIDDM (Boarder line II controlled by Diet) and Other (Lyme disease, )
ED Past Surgical History: Gynecological (Left breast lumpectomy), Tonsilectomy and Other (Cataract surgery , Left ear surgery)
Social History
Tobacco: Former smoker
Alcohol: None
Drug: None
Personal:
Living: alone
Employment: Employed
Family History
Family History: Hypertension
Phy Exam
Physical Exam
Physical Exam:
General: Well-appearing, no clinical signs of dehydration, nontoxic and in no acute distress
HEENT: protecting airway
Neck: appears supple
CV: Normal heart rate
Resp: No accessory muscle use, no increased work of breathing
Abd:no distension
Extremities: Expanding hematoma to the right hand with arterial bleeding at the dorsal hand, snuffbox region. Puncture wound. Palpable arterial pulse
Neuro: alert, no focal neurologic deficit
: deferred
Rectal: deferred
Psych: Normal affect
Skin: Intact
Course
Orders/Labs/Results
Orders:
Orders
01/05/25 19:15
Tranexamic Acid 1,000 mg .ROUTE .STK-MED ONE
01/05/25 19:53
Type+Screen Urgent
Complete Blood Count/With Diff Urgent
Comprehensive Metabolic Panel Urgent
Prothrombin Time Urgent
01/05/25 19:58
Tetanus/Diphth/Acelpertussis [Adacel] 0.5 ml IM .ONCE ONE
01/05/25 20:09
Ampicillin/Sulbactam 3 G [Unasyn] 3 gm 0.9% Sodium Chloride 100 ml [Nss] 100 ml IV NOW
01/05/25 20:17
ABO2 Urgent
BBK Wristband Number:
Associate notified that ABO2 has been ordered: [id number]
Date: 01/05/25
Time: 20:17
Tassel Making Machine Operator ID: [id number]
01/05/25 21:19
Tramadol HCl [Ultram] 50 mg PO NOW STA
Abnormal Lab Results
01/05/25
19:53
RBC 4.05 L 10^6/uL
(4.20-5.40)
Hct 36.7 L %
(37.0-47.0)
MCH 31.4 H pg
(27.0-31.0)
Absolute Monos (auto) 0.7 H 10^3/uL
(0.1-0.6)
Monocytes % 9.6 H %
(1.7-9.3)
Chloride 108 H mmol/L
(98-107)
Creatinine 0.5 L mg/dL
(0.6-1.0)
Glucose 135 H mg/dl
(70-99)
Calcium 10.3 H mg/dl
(8.4-10.2)
01/05/25 19:53
01/05/25 19:53
Vital Signs
Initial and Last Documented VS:
Initial Vital Signs
Pulse Resp BP
131 24 181/142
01/05/25 18:50 01/05/25 18:50 01/05/25 18:50
Last Documented Vital Signs
Temp Pulse Resp BP Pulse Ox
98.9 F 94 13 134/99 94
01/05/25 20:20 01/05/25 20:45 01/05/25 20:45 01/05/25 20:20 01/05/25 20:30
Procedures
Laceration Closure
Right Dorsal Hand:
Status of Wound: clean
Size of Wound in cm: 1
Anesthesia: 1% Lidocaine with epi
Type of Closure: other (1 figure 8)
Skin Closure Material: 4-0 prolene
Number of sutures: 1
Additional information:
arterial bleed - suture to stop bleeding
MDM/Problems Addressed
MDM/Problems Addressed:
79-year-old female with history of DVT on Eliquis presenting for puncture wound from her cat to the right hand.
Vital signs on arrival significant for high blood pressure and tachycardia, however patient is notably upset on arrival. Patient was significant arterial bleeding to the right dorsal hand at the snuffbox region. Initial attempt to hold pressure,
unsuccessful. Followed by attempt for suturing, unsuccessful. Tourniquets placed to the hand to aid with hemostasis. Ultimately able to place a [id number] suture. TXA and Gelfoam placed over the site. Nurse from the OR was also able to
come down for advanced tourniquet. Will taper off of the tourniquet when able. Will update tetanus and start antibiotics. Ultimately concerned regarding patient's swelling and hematoma. Patient is right-hand dominant, is a automotive painter helper by trade. Did
please call the vascular surgery, note that they do not get involved in injury is below the wrist. They recommended discussing with orthopedic hand surgeon. No orthopedic hand surgeon available. Call placed to [facility], did discuss with
Dr. Stringer who accepts her transfer.
21:40 -frequent reassessments completed for patient's upper extremity. Radial pulse remains intact. Sensation is grossly intact. Remains significant swelling to the right hand. Will require frequent compartment checks. Bleeding has stopped and
tourniquet was able to be removed after about 40 minutes. Transport at bedside. Stable for transfer.
*Critical Care Note
Total Time (30-74mins, 75-104mins- exclusive of procedures): 45
comment:
The high probability of a clinically significant, sudden or life threatening deterioration of the trauma system(s) required my full and direct attention, intervention and personal management. The aggregate critical care time was 45minutes. This time
is in addition to time spent performing reported procedures but includes the following:
[x] Data Review and interpretation
[x] Patient assessment and monitoring of vital signs
[x] Documentation
[x] Medication orders and management
ED Attending Note
-
Portions of this chart may have been created with voice recognition software.� Occasional wrong word or��sound alike� substitutions may have occurred due to the inherent limitations of voice recognition software.
Discharge Plan
Departure
Patient Disposition: [facility]
Date of Disposition: 01/05/25
Time of Disposition: 20:09
Patient with high blood pressure during this ER visit?: Yes
Condition: Critical
Discharge Problem:
Cat bite of hand, Arterial hemorrhage, Hematoma of right hand
Prescriptions:
No Action
ascorbic acid (vitamin C) [Vitamin C] 1,000 MG tablet
1 tab PO DAILY
vitamin B complex [Varisan] 1 TAB tablet
1 tab PO DAILY
cholecalciferol (vitamin D3) [Vitamin D3] 1,000 UNIT capsule
1 cap PO DAILY
docosahexaenoic acid-epa 1 CAP capsule
3 cap PO DAILY
multivitamin 1 EACH tablet
1 ea PO DAILY
famotidine 40 MG tablet
40 mg PO DAILY
aspirin [Lo-Dose Aspirin] 81 MG tablet,delayed release (DR/EC)
81 mg PO DAILY
omeprazole 20 MG capsule,delayed release(DR/EC)
20 mg PO DAILY
denosumab [Prolia] 60 MG/ML syringe
60 mg SC [id number]
diclofenac sodium 75 mg tablet,delayed release (DR/EC)
75 mg PO BID PRN (Reason: Pain) Qty: 20 0RF
Eliquis 5 mg tablet
5 mg PO BID Qty: 68 0RF
Rx Instructions:
Take 2 tabs PO BID x 6.5 days. Take 1 tab PO BID remaining days
Eliquis 5 mg tablet
5 mg PO BID Qty: 60 0RF
Referrals:
UNKNOWN - PT DOES,NOT KNOW [Unknown Provider] -
Hospital Transfer
Other hospital: [facility]
I certify that the patient requires transfer: Yes
Discussed case with accepting physician: Dr. Stringer
Reason for transfer: specialties available
Interventions
Interventions:
*General Assessment Last Done: 01/05/25 18:50
*Neglect/Abuse Screening Last Done: 01/05/25 20:08
*ED- Fall Risk Assessment Last Done: 01/05/25 20:08
*ED COVID-19 Vaccine History Last Done: 01/05/25 18:50
*Nursing Disposition Last Done: 01/05/25 21:57
ED-Skin Assessment Last Done: 01/05/25 20:09
Discharge Date and Time
Discharge Date/Time: 01/05/25 21:58
Print Language: MACANESE
[2025-01-05 20:01] LABS: % Basophils 0.6 % (0-2); % Eosinophils 1.3 % (0-6); % Immature Granulocytes 0.4 % (0-0.5); % Lymphocytes 31.7 % (20.5-51.1); % Monocytes 9.6 % (1.7-9.3); % Neutrophils 56.4 % (42.2-75.2); Absolute Basophils 0.1 10^3/uL (0-0.2); Absolute Eosinophils 0.1 10^3/uL (0-0.7); Absolute Lymphocytes 2.5 10^3/uL (1.2-3.4); Absolute Monocytes 0.7 10^3/uL (0.1-0.6); Absolute Neutrophils 4.4 10^3/uL (1.4-6.5); Hematocrit 36.7 % (37.0-47.0); Hemoglobin 12.7 g/dL (12.0-16.0); Mean Corp Hgb Conc. 34.6 g/dL (33.0-37.0); Mean Corpuscular Hgb 31.4 pg (27.0-31.0); Mean Corpuscular Volume 90.6 fL (81.0-99.0); Mean Platelet Volume 9.4 fL (7.4-10.4); Nucleated Red Blood Cells % 0 %; Platelet Count 291 10^3/uL (130-400); Red Blood Cell Count 4.05 10^6/uL (4.20-5.40); Red Cell Dist. Width 13.6 % (11.5-14.5); White Blood Cell Count 7.7 10^3/uL (4.8-10.8)
[2025-01-05 20:11] LABS: INR 0.97; PT 13.2 Sec (11.4-14.6)
[2025-01-05] MEDS: ADACEL 0.5 ML IM (20:13)
[2025-01-05 20:14] LABS: ALT (SGPT) 21 U/L (0-35); AST (SGOT) 20 U/L (14-36); Albumin 4.4 g/dl (3.5-5.0); Alkaline Phosphatase 38 U/L (38-126); Blood Urea Nitrogen 14 mg/dl (7-17); Calcium 10.3 mg/dl (8.4-10.2); Carbon Dioxide 24 mmol/L (22-30); Chloride 108 mmol/L (98-107); Estimated Creatinine Clearance 75 ml/min; Glucose 135 mg/dl (70-99); Potassium 4.1 mmol/L (3.5-5.1); Sodium 141 mmol/L (135-145); Total Bilirubin 0.3 mg/dl (0.2-1.3); Total Protein 6.4 g/dl (6.3-8.2); eGFR > 60.00
[2025-01-05 20:18] VITALS: BP 134/99
[2025-01-05 20:20] VITALS: BP 134/99
[2025-01-05] MEDS: UNASYN IV (20:25)
[2025-01-05] MEDS: ULTRAM 50 MG PO (21:26)
== END 2025-01-05 21:58 | disposition short-term general hospital (02) ==
LOC: EMR 18:47
PROVIDERS: EMERGENCY PHYSICIAN Student in an Organized Health Care Education/Training Program; FAMILY PHYSICIAN Family Medicine
DX: S61.451A Open bite of right hand, initial encounter (principal); W55.01XA Bitten by cat, initial encounter; Z23 Encounter for immunization; I25.10 Atherosclerotic heart disease of native coronary artery without angina pectoris; E78.00 Pure hypercholesterolemia, unspecified; E11.9 Type 2 diabetes mellitus without complications; Z79.01 Long term (current) use of anticoagulants; Z82.49 Family history of ischemic heart disease and other diseases of the circulatory system; Z85.3 Personal history of malignant neoplasm of breast; Z86.718 Personal history of other venous thrombosis and embolism; Z87.891 Personal history of nicotine dependence
CPT/HCPCS: 99291; 12001; 96365; 90471; 80053; 85025; 85610; 86850; 86900; 86901; 90715

== ENCOUNTER → 2025-01-22 13:59 | Outpatient (REF) | payer MEDICARE, OTHER, SELFPAY | LOC: WDC 13:59 | PROVIDERS: ATTENDING PHYSICIAN Internal Medicine Hematology & Oncology; FAMILY PHYSICIAN Family Medicine | DX: Z12.31 Encounter for screening mammogram for malignant neoplasm of breast (principal) | CPT/HCPCS: 77063; 77067 ==

== ENCOUNTER → 2025-01-26 07:58 | Outpatient (REF) | payer MEDICARE, OTHER, SELFPAY | LOC: HWRAD 07:58 | PROVIDERS: ATTENDING PHYSICIAN Internal Medicine Hematology & Oncology; FAMILY PHYSICIAN Family Medicine | DX: I82.401 Acute embolism and thrombosis of unspecified deep veins of right lower extremity (principal); I82.491 Acute embolism and thrombosis of other specified deep vein of right lower extremity | CPT/HCPCS: 93971 ==

== ENCOUNTER → 2025-05-24 09:01 | Outpatient (REF) | payer MEDICARE, OTHER, SELFPAY | LOC: HWRCS 09:01 | PROVIDERS: ATTENDING PHYSICIAN Nurse Practitioner; FAMILY PHYSICIAN Family Medicine | DX: R06.02 Shortness of breath (principal) | CPT/HCPCS: 93306 ==